=== PATIENT | female | born 1940 | race Two or more races ===

== ENCOUNTER 2023-10-17 09:18 | Emergency (ER) | payer OTHER ==
[~2023-10-17] VITALS: Ht 165.1 cm; Wt 65.9 kg
[2023-10-17 09:44] LABS: Basophils # (auto) 0 10 ^3/uL (0-0.2); Basophils % (auto) 0.4 % (0.0-2.0); Eosinophils # (auto) 0.2 10 ^3/uL (0-0.8); Eosinophils % (auto) 2.5 % (0.0-7.0); Hematocrit 39.5 % (36.0-46.0); Hemoglobin 13.4 g/dL (12.2-16.2); Lymphocytes # (auto) 1.2 10 ^3/uL (0.4-5.4); Lymphocytes % (auto) 16.2 % (10.0-50.0); Mean Corpuscular Hemoglobin 30.9 pg (28.0-32.0); Mean Corpuscular Hgb Conc. 33.9 g/dL (32.0-36.0); Mean Corpuscular Volume 90.9 fL (80.0-100.0); Monocytes # (auto) 0.7 10 ^3/uL (0-1.3); Monocytes % (auto) 9.2 % (0.0-12.0); Neutrophils # (auto) 5.4 10 ^3/uL (1.6-8.6); Neutrophils % (auto) 71.7 % (37.0-80.0); Red Blood Cells 4.35 10^6/uL (4.0-5.20); Red Cell Distribution Width 13.5 % (11.8-14.3); White Blood Cell 7.6 10^3/uL (4.4-10.8)
[2023-10-17 10:22] LABS: Chloride 106 mmol/L (98-107); Potassium 4.3 mmol/L (3.5-5.1); Sodium 138 mmol/L (136-145)
[2023-10-17 10:23] LABS: Anion Gap 5 (5-15); Calcium 9.8 mg/dL (8.7-10.4); Carbon Dioxide 27 mmol/L (20-30)
[2023-10-17 10:28] LABS: BUN/Creatinine Ratio 10.6 (10.0-20.0); Blood Urea Nitrogen 10 mg/dL (9-23); Glucose 102 mg/dL (74-106)
[2023-10-17] MEDS: ENOXAPARIN SOD 80 MG/0.8ML SYRINGE SC ONE (11:23)
[2023-10-17 11:28] VITALS: PULSE 85; RESP 19; O2SAT 97
[2023-10-17] MEDS: IOHEXOL 350 MG/ML 100ML IJ ONE (14:06)
[2023-10-17 16:01] VITALS: BP 151/87; PULSE 70; RESP 18; TEMP 98.5; O2SAT 98
== END 2023-10-17 16:28 | disposition home or self-care (01) ==
LOC: EDUNIT# 09:18 → ER 09:18 → EDBD 09:18 → ER 16:28
DX: R07.89 Other chest pain (principal)
CPT/HCPCS: 36415; 71275; 80048; 84484; 85025; 85379; 93005; 96372; 99285; J1650; Q9967; 99291